=== PATIENT | female | born 1955 | race Caucasian/White ===

== ENCOUNTER → 2019-09-07 10:07 | Outpatient (BNVA) | payer BC, OTHER, SELFPAY | PROVIDERS: Visit Provider Nurse Practitioner Family | DX: Z12.39 Encounter for other screening for malignant neoplasm of breast (principal); R53.83 Other fatigue; R60.9 Edema, unspecified; E55.9 Vitamin D deficiency, unspecified; R60.0 Localized edema | CPT/HCPCS: 85025 ==

== ENCOUNTER → 2019-09-11 08:19 | Outpatient (BNVA) | payer BC, OTHER, SELFPAY | PROVIDERS: Visit Provider Nurse Practitioner Family | DX: E55.9 Vitamin D deficiency, unspecified (principal); R60.0 Localized edema; R53.83 Other fatigue | CPT/HCPCS: 80053; 82306; 83880; 84443 ==

== ENCOUNTER 2019-09-27 13:15 | Outpatient (CLI) | payer BC, OTHER, SELFPAY ==
--- NOTE | 2019-09-27 13:23 | MM_ITS ---
WS: [id number] BILATERAL DIGITAL SCREENING MAMMOGRAPHY WITH CAD CLINICAL INFORMATION: SCREENING HISTORY: Screening mammogram. Right breast lump and soreness COMPARISON: November 25, 2016 TECHNIQUE: Bilateral CC and MLO views. FINDINGS: Scattered fibroglandular densities bilaterally. . Punctate and vascular calcification. Palpable marke rs upper outer right breast posterior depth. No mammographic abnormalities in this area. Recommend [facility] BREAST ULTRASOUND for further evaluation. MM/[place] [id number] IMPRESSION: BI-RADS: 0-Incomplete: Need additional imaging evaluation FOLLOW UP: Need Additional Imaging
== END 2019-09-27 13:16 | disposition home or self-care (01) ==
PROVIDERS: PCP Nurse Practitioner Family; Visit Provider Nurse Practitioner Family
DX: Z12.31 Encounter for screening mammogram for malignant neoplasm of breast (principal); R92.1 Mammographic calcification found on diagnostic imaging of breast
CPT/HCPCS: 77067

== ENCOUNTER 2019-10-02 13:49 | Outpatient (CLI) | payer BC, OTHER, SELFPAY ==
--- NOTE | 2019-10-02 14:15 | US_ITS ---
WS: [id number] THYROID ULTRASOUND HISTORY: thyroid tenderness COMPARISON: None available. Right lobe: 5.2 cm x 1.8 cm x 1.9 cm. Volume: 8.9 cm3. Slightly enlarged thyroid. Ill-defined hypoechoic area with increased vascularity in the posterior gl and. Hypoechoic nodule with increased vascularity measures 1.0 x 0.8 x 1.0 cm. There are additional s maller hypoechoic subcentimeter nodules. Left lobe: 4.2 cm x 1.2 cm x 1.5 cm. Volume: 3.9 cm3. Normal size gland and mild heterogeneity. No discrete nodule. Isthmus: 0.2 cm. US/US thyroid [id number] IMPRESSION: 1. Ill-defined hypervascular hypoechoic nodule in the posterior mid gland RIGH T thyroid. This is not a focal nodule. May be an area of thyroiditis. Due to it s ill defined shape recommend thyroid ultrasound in 6 months. 2. No dominant well-defined nodules.
== END 2019-10-02 13:50 | disposition home or self-care (01) ==
PROVIDERS: PCP Nurse Practitioner Family; Visit Provider Nurse Practitioner Family
DX: E04.9 Nontoxic goiter, unspecified (principal)
CPT/HCPCS: 76536

== ENCOUNTER 2019-10-09 14:32 | Outpatient (CLI) | payer BC, OTHER, SELFPAY ==
--- NOTE | 2019-10-09 15:00 | US_ITS ---
WS: [id number] ULTRASOUND BREAST RIGHT TECHNIQUE: Ultrasound right breast focused area of concern. CLINICAL INFORMATION: Abnormal mammo COMPARISON: Screening mammography September 27, 2019 FINDINGS: Ultrasound right breast area of concern in the right axilla at the 11:00 position. Several normal siz ed lymph nodes are visualized with normal fatty juanjose. Largest lymph node measures 2.0 x 0.5 x 2.1 cm. This may be reactive but is indeterminant and could b e further evaluated with ultrasound guided biopsy. US/US breast RT limited* [id number] IMPRESSION: BI-RADS 4A Consider ultrasound-guided biopsy for the enlarged lymph node measuring 2.0 x 0 .5 x 2.1 cm in the area of palpable concern
== END 2019-10-09 14:33 | disposition home or self-care (01) ==
LOC: RAD 14:36
PROVIDERS: PCP Nurse Practitioner Family; Visit Provider Nurse Practitioner Family
DX: R92.8 Other abnormal and inconclusive findings on diagnostic imaging of breast (principal); N63.0 Unspecified lump in unspecified breast
CPT/HCPCS: 76642

== ENCOUNTER → 2019-10-18 15:29 | Outpatient (BNVA) | payer BC, OTHER, SELFPAY | PROVIDERS: PCP Nurse Practitioner Family; Visit Provider Nurse Practitioner Family | DX: R59.0 Localized enlarged lymph nodes (principal); R35.0 Frequency of micturition; R39.15 Urgency of urination | CPT/HCPCS: 80053; 81003; 87077; 87086; 87186 ==

== ENCOUNTER 2019-12-05 10:58 | Outpatient (CLI) | payer BC, OTHER, SELFPAY ==
--- NOTE | 2019-12-05 11:03 | XRR_ITS ---
PROCEDURE INFORMATION: Exam: XR Right Shoulder Exam date and time: 12/05/2019 11:35 AM Age: 64 years old Clinical indication: Pain; Shoulder; Right; Additional info: Right shoulder pain from scapula into breast x 1 week, no injury TECHNIQUE: Imaging protocol: XR Right shoulder. Views: 2 or more views. COMPARISON: No relevant prior studies available. FINDINGS: Bones/joints: No fracture. Unremarkable glenohumeral joint. Soft tissues: Normal. XR/XR shoulder RT min 2V* [id number] IMPRESSION: No acute findings.
== END 2019-12-05 10:59 | disposition home or self-care (01) ==
LOC: RAD 11:01
PROVIDERS: PCP Nurse Practitioner Family; Visit Provider Nurse Practitioner Family
DX: M25.511 Pain in right shoulder (principal)
CPT/HCPCS: 73030

== ENCOUNTER 2020-01-04 15:45 | Outpatient (CLI) | payer BC, OTHER, SELFPAY ==
--- NOTE | 2020-01-04 16:00 | MRR_ITS ---
PROCEDURE INFORMATION: Exam: MR Right Upper Extremity Joint Without Contrast; Shoulder Exam date and time: 01/04/2020 4:00 PM Age: 64 years old Clinical indication: Pain; Shoulder; Right; Additional info: M25.511 pain in right shoulder TECHNIQUE: Imaging protocol: MR of the Right upper extremity without contrast. Exam focused on the shoulder. COMPARISON: CR XR shoulder RT min 2V* [id number] 12/05/2019 11:30 AM FINDINGS: Bones and cartilage: Unremarkable. There are degenerative hypertrophic changes of the acromioclavicular joint. Joint spaces: Small joint effusion. Glenoid labrum: Unremarkable. No evidence of tear. Supraspinatus tendon: There is a small full-thickness tear in the distal supraspinatus tendon.. Infraspinatus tendon: Unremarkable. No evidence of tear. Subscapularis tendon: Unremarkable. No evidence of tear. Teres minor tendon: Unremarkable. No evidence of tear. Tendon of biceps brachii: Unremarkable. No evidence of tear. Glenohumeral ligaments: Unremarkable. Muscles: Unremarkable. Soft tissues: Unremarkable. MR/MR shoulder RT wo con* [id number] IMPRESSION: There is a full-thickness tear of the distal supraspinatus tendon.
== END 2020-01-04 15:46 | disposition home or self-care (01) ==
PROVIDERS: PCP Nurse Practitioner Family; Visit Provider Nurse Practitioner Family
DX: M75.101 Unspecified rotator cuff tear or rupture of right shoulder, not specified as traumatic (principal); X58.XXXA Exposure to other specified factors, initial encounter
CPT/HCPCS: 73221

== ENCOUNTER → 2020-09-09 08:46 | Outpatient (BNVA) | payer BC, OTHER, SELFPAY | PROVIDERS: PCP Nurse Practitioner Family; Visit Provider Nurse Practitioner Family | DX: E03.9 Hypothyroidism, unspecified (principal); E55.9 Vitamin D deficiency, unspecified; M54.5 Low back pain; M25.551 Pain in right hip | CPT/HCPCS: 82306; 84443 ==

== ENCOUNTER → 2023-06-09 08:46 | Outpatient (BNVA) | payer MEDICARE, OTHER, SELFPAY | PROVIDERS: PCP Nurse Practitioner Family; Visit Provider Nurse Practitioner Family | DX: Z12.11 Encounter for screening for malignant neoplasm of colon (principal); Z74.8 Other problems related to care provider dependency; Z23 Encounter for immunization; E03.9 Hypothyroidism, unspecified; E78.5 Hyperlipidemia, unspecified; I10 Essential (primary) hypertension; R53.83 Other fatigue; E53.8 Deficiency of other specified B group vitamins; E55.9 Vitamin D deficiency, unspecified; R35.0 Frequency of micturition; Z00.00 Encounter for general adult medical examination without abnormal findings; N39.0 Urinary tract infection, site not specified | CPT/HCPCS: 80053; 80061; 81000; 82306; 82607; 84443; 85025; 87077; 87086; 87184 ==

== ENCOUNTER 2023-06-17 12:33 | Outpatient (CLI) | payer MEDICARE, OTHER, SELFPAY ==
--- NOTE | 2023-06-17 13:00 | US_ITS ---
WS: [id number] ULTRASOUND THYROID TECHNIQUE: Ultrasound of the thyroid. CLINICAL INFORMATION: E04.9 - Nontoxic goiter, unspecified COMPARISON: 10/02/2019 FINDINGS: Thyroid: Right and left thyroid lobes are normal in size and echotexture. Isoechoic nodule measuring 5 x 3 mm mid RIGHT thyroid. This is unchanged compared to previous. The previously described ill-defined heterogeneous area in the posterior mid RIGHT thyroid lobe is st able and does not appear to represent a discrete nodule. This is stable in size measuring 9 x 10 mm No left-sided nodules. Right thyroid lobe: 5.1 cm x 1.6 cm x 1.6 cm Left thyroid lobe: 4.4 cm x 1.5 cm x 1.4 cm. Isthmus: 0.3 mm. Cervical lymphadenopathy: None. IMPRESSION: 1. No significant changes since 10/02/2019 2. Stable 5 x 3 mm isoechoic mid RIGHT thyroid nodule 3. Area of heterogeneity in the mid RIGHT thyroid is stable in size measuring 9 x 10 mm. 4. No other suspicious findings.
--- NOTE | 2023-06-17 14:00 | MM_ITS ---
WS: [id number] BILATERAL 3D TOMOSYNTHESIS DIGITAL SCREENING MAMMOGRAPHY WITH CAD CLINICAL INFORMATION: Z12.39 - Encounter for other screening for malignant neop... HISTORY: Screening mammogram. No current complaints. COMPARISON: 2020 TECHNIQUE: Bilateral CC and MLO views. FINDINGS: Scattered fibroglandular densities bilaterally. No suspicious focal mass, asymmetry, calcifications, or architectural distortion. No evidence of malignancy. Vascular calcifications. Incidental calcifica tions. IMPRESSION: MM/[place] [id number] BI-RADS: 2-Benign FOLLOW UP: 1 Year Follow-up Recommend return to annual screening mammography.
--- NOTE | 2023-06-17 14:30 | XR_ITS ---
WS: [id number] SCREENING DEXA SCAN [employer] CLINICAL INFORMATION: M81.0 - Age-related osteoporosis without current patholog... COMPARISON: None. FINDINGS: The L1-L4 bone mineral density measures 1.250 g/cm2. This corresponds to a T score score of 0.6 and Z score of 1.6. Left femoral neck bone mineral density measures 1.046 g/cm2. This corresponds to a T score of 0.3 and Z score of 1.3. Right femoral neck bone mineral density measures 0.996 g/cm2. This corresponds to a T score -0.1of an d Z score of 0.9. Mean femoral neck bone mineral density measures 1.021 g/cm2. This corresponds to a T score of 0.1 and Z score of 1.1. IMPRESSION: Normal bone mineralization lumbar spine and femoral necks.. Patient's FRAX calculated 10 year probability for major osteoporotic fracture is 7.3% and osteoporoti c hip fracture is 0.4%.
== END 2023-06-17 12:34 | disposition home or self-care (01) ==
LOC: RAD 12:33
PROVIDERS: PCP Nurse Practitioner Family; Visit Provider Nurse Practitioner Family
DX: M81.0 Age-related osteoporosis without current pathological fracture; E04.9 Nontoxic goiter, unspecified; Z12.39 Encounter for other screening for malignant neoplasm of breast; R92.30 Dense breasts, unspecified
CPT/HCPCS: 76536; 77063; 77067; 77080

== ENCOUNTER → 2023-06-22 10:03 | Outpatient (BNVA) | payer MEDICARE, OTHER, SELFPAY | PROVIDERS: PCP Nurse Practitioner Family; Visit Provider Surgery | DX: Z12.11 Encounter for screening for malignant neoplasm of colon (principal) | CPT/HCPCS: 99024; 99203 ==

== ENCOUNTER → 2023-07-07 08:49 | Outpatient (BNVA) | payer MEDICARE, OTHER, SELFPAY | PROVIDERS: PCP Nurse Practitioner Family; Visit Provider Nurse Practitioner Family | DX: N39.0 Urinary tract infection, site not specified (principal); T78.40XA Allergy, unspecified, initial encounter; L98.9 Disorder of the skin and subcutaneous tissue, unspecified | CPT/HCPCS: 81000; 86003; 86008; 86618; 86666; 86757 ==

== ENCOUNTER → 2023-08-01 11:59 | Outpatient (BNVA) | payer MEDICARE, OTHER, SELFPAY | PROVIDERS: PCP Nurse Practitioner Family; Visit Provider Nurse Practitioner Family | DX: E07.9 Disorder of thyroid, unspecified (principal); E53.9 Vitamin B deficiency, unspecified; E55.9 Vitamin D deficiency, unspecified; Z91.018 Allergy to other foods | CPT/HCPCS: 82306; 82607; 84443 ==

== ENCOUNTER → 2023-08-10 13:11 | Outpatient (BNVA) | payer MEDICARE, OTHER, SELFPAY | PROVIDERS: PCP Nurse Practitioner Family; Referring Provider Nurse Practitioner Family; Visit Provider Nurse Practitioner Family | DX: L82.0 Inflamed seborrheic keratosis (principal); L57.0 Actinic keratosis; L82.1 Other seborrheic keratosis; D22.62 Melanocytic nevi of left upper limb, including shoulder; L57.8 Other skin changes due to chronic exposure to nonionizing radiation; L81.4 Other melanin hyperpigmentation | CPT/HCPCS: 17000; 17110; 99203 ==

== ENCOUNTER → 2023-10-03 10:52 | Outpatient (BNVA) | payer MEDICARE, OTHER, SELFPAY | PROVIDERS: PCP Nurse Practitioner Family; Referring Provider Nurse Practitioner Family; Visit Provider Psychiatry & Neurology Neurology | DX: R20.2 Paresthesia of skin (principal); G62.9 Polyneuropathy, unspecified; E53.8 Deficiency of other specified B group vitamins; E53.9 Vitamin B deficiency, unspecified; G37.9 Demyelinating disease of central nervous system, unspecified; R29.90 Unspecified symptoms and signs involving the nervous system; E55.9 Vitamin D deficiency, unspecified; R03.0 Elevated blood-pressure reading, without diagnosis of hypertension; W57.XXXA Bitten or stung by nonvenomous insect and other nonvenomous arthropods, initial encounter | CPT/HCPCS: 36415; 82607; 82746; 83735; 83921; 84207; 84425; 84591; 86592; 99203 ==

== ENCOUNTER → 2023-10-18 13:50 | Outpatient (BNVA) | payer MEDICARE, OTHER, SELFPAY | PROVIDERS: PCP Nurse Practitioner Family; Visit Provider Psychiatry & Neurology Neurology | DX: R20.2 Paresthesia of skin (principal); G62.9 Polyneuropathy, unspecified; G56.03 Carpal tunnel syndrome, bilateral upper limbs; E53.8 Deficiency of other specified B group vitamins | CPT/HCPCS: 83090; 95885; 95910 ==

== ENCOUNTER 2023-12-01 10:44 | Outpatient (CLI) | payer MEDICARE, OTHER, SELFPAY ==
--- NOTE | 2023-12-01 11:00 | MR_ITS ---
WS: [id number] MRI HEAD WITH CONTRAST TECHNIQUE: Sagittal T1, T2 axial, T2 axial FLAIR, axial susceptibility weighted imaging, axial diffus ion weighted images, and coronal T2 images were obtained. Pre and post-T1 axial and post T1 coronal i mages. ADC and FSPGR images. CLINICAL INFORMATION: R20.2 - Paresthesia of skin COMPARISON: MRI 2015 FINDINGS: No evidence of restricted diffusion to suggest acute ischemia. Ventricular system and basal cisterns are patent. Normal posterior fossa. Normal vascular flow voids at the skull base. No extra-axial flui d collections. No loss of mass or mass effect. Mild mucosal thickening in the paranasal sinuses. Mast oid air cells are well aerated. Mild small vessel changes. Mild parenchymal volume loss. No hemosiderin on the susceptibility weighte d imaging. Normal optic chiasm and pituitary infundibulum. Temporal lobes and hippocampal formations are normal in appearance. No abnormal gadolinium enhancement. Normal dural venous sinuses. Incidental partially empty sella. MR/MR head wo/w con [id number] IMPRESSION: 1. No evidence of restricted diffusion to suggest acute ischemia. 2. Mild small vessel changes slightly progressed compared to 2015. Mild parenc hymal volume loss. 3. No hemosiderin on the susceptibly weighted imaging. 4. Normal corpus callosum. 5. No other acute findings.
--- NOTE | 2023-12-01 11:45 | MR_ITS ---
WS: [id number] MR CERVICAL SPINE WO/W HISTORY: R20.2 - Paresthesia of skin TECHNIQUE: Sagittal T1, T2 and T2 inversion recovery; axial T2, T2 gradient and fiesta. Post gadolini um imaging with fat saturation technique. FINDINGS: Straightening of the normal cervical lordosis. No high grade central canal narrowing. Cord signal is normal. No demyelinating lesions within the cervical cord. No cord atrophy. No enhancing lesions. C2-3: Mild facet arthropathy. Spinal canal and foramen are patent. C3-4: Mild facet arthropathy. Spinal canal and foramen are patent. C4-5: Mild disc osteophyte complex with endplate ridging. Spinal canal and foramen are patent. Mild f acet arthropathy. C5-6: Mild disc osteophyte ridging. Moderate facet arthropathy. Spinal canal and foramen are patent. C6-7: Disc osteophyte complex with endplate ridging. Mild RIGHT bony foraminal narrowing. Moderate fa cet arthropathy. Spinal canal is patent. C7-T1: Mild disc osteophyte complex. Mild LEFT bony foraminal narrowing. Spinal canal and RIGHT veronica en are patent. MR/MR cervical spine wo/w [id number] IMPRESSION: 1. Cord signal is normal. No demyelinating lesions within the cervical cord. 2. No abnormal gadolinium enhancement. 3. Mild spondylitic changes described above..
== END 2023-12-01 10:45 | disposition home or self-care (01) ==
PROVIDERS: PCP Nurse Practitioner Family; Visit Provider Psychiatry & Neurology Neurology
DX: M47.892 Other spondylosis, cervical region (principal); M25.78 Osteophyte, vertebrae; R20.2 Paresthesia of skin
CPT/HCPCS: 70553; 72156; A9577

== ENCOUNTER 2023-12-05 10:33 | Outpatient (CLI) | payer MEDICARE, OTHER, SELFPAY ==
--- NOTE | 2023-12-05 11:00 | MR_ITS ---
WS: [id number] MRI LUMBAR SPINE WITH AND WITHOUT CONTRAST HISTORY: R20.2 - Paresthesia of skin COMPARISON: 06/02/2015 TECHNIQUE: Sagittal and axial multisequence imaging is submitted. Postcontrast imaging MultiHance 18 mL. Marked increase in thoracic kyphosis. L3 anterolisthesis by 2.7 mm. L4 anterolisthesis by 3.6 mm. No fracture. No marrow edema. Disc spaces are only mildly desiccated. Disc spaces and vertebral body heights are well-preserved. Conus terminates normally at L1. L1-L2: Bilateral mild facet arthritis. L2-L3: Mild disc bulging with bilateral facet joint arthritis. Very slight encroachment upon the suba rticular recesses. L3-L4: Mild annular disc bulging with ligamentum flavum and facet arthritis. Thecal sac is being defo rmed by the facet joint arthritis. Mild central with bilateral subarticular recess and foraminal sten osis. L4-L5: Mild annular disc bulging with moderate ligamentum flavum and facet arthritis. Moderate subart icular recess encroachment. L5-S1: Bilateral facet joint arthritis. Postcontrast imaging negative for discitis or osteomyelitis. No enhancing masses. 2.7 cm RIGHT renal cyst. MR/MR lumbar spine wo/w con [id number] IMPRESSION: 1. Grade 1 anterolisthesis of L3 and L4 with mild progression since 2015. 2. L4-5: Moderate subarticular recess encroachment upon the traversing L5 nerv e roots. 3. L3-4: Mild central with bilateral subarticular recess and foraminal stenosi s. 4. L2-3: Mild subarticular recess encroachment. 5. No discitis or osteomyelitis.
[2023-12-05] MEDS: gadobenate dimeglumine 20 mL vial 18 ML IV (11:18)
== END 2023-12-05 10:34 | disposition home or self-care (01) ==
LOC: RAD 10:34
PROVIDERS: PCP Nurse Practitioner Family; Visit Provider Psychiatry & Neurology Neurology
DX: M43.16 Spondylolisthesis, lumbar region (principal); M99.63 Osseous and subluxation stenosis of intervertebral foramina of lumbar region; R20.2 Paresthesia of skin
CPT/HCPCS: 72158

== ENCOUNTER → 2024-01-04 12:31 | Outpatient (BNVA) | payer MEDICARE, OTHER, SELFPAY | PROVIDERS: PCP Nurse Practitioner Family; Visit Provider Psychiatry & Neurology Neurology | DX: G62.9 Polyneuropathy, unspecified (principal); E53.8 Deficiency of other specified B group vitamins; E53.9 Vitamin B deficiency, unspecified; G37.9 Demyelinating disease of central nervous system, unspecified; R29.90 Unspecified symptoms and signs involving the nervous system; E55.9 Vitamin D deficiency, unspecified; R03.0 Elevated blood-pressure reading, without diagnosis of hypertension; W57.XXXA Bitten or stung by nonvenomous insect and other nonvenomous arthropods, initial encounter; M62.541 Muscle wasting and atrophy, not elsewhere classified, right hand; M62.542 Muscle wasting and atrophy, not elsewhere classified, left hand; R20.2 Paresthesia of skin; X58.XXXA Exposure to other specified factors, initial encounter; M43.16 Spondylolisthesis, lumbar region; G56.03 Carpal tunnel syndrome, bilateral upper limbs | CPT/HCPCS: 99212; 99213 ==

== ENCOUNTER → 2024-01-18 10:36 | Outpatient (BNVA) | payer MEDICARE, OTHER, SELFPAY | PROVIDERS: PCP Nurse Practitioner Family; Visit Provider Nurse Practitioner | DX: M79.642 Pain in left hand (principal); G56.13 Other lesions of median nerve, bilateral upper limbs; M79.641 Pain in right hand; R03.0 Elevated blood-pressure reading, without diagnosis of hypertension | CPT/HCPCS: 73130; 99204; L3908 ==

== ENCOUNTER 2024-01-18 17:29 | Outpatient (CLI) | payer MEDICARE, OTHER, SELFPAY | END 2024-01-18 17:30 | disposition home or self-care (01) | LOC: SPT 17:29 | PROVIDERS: PCP Nurse Practitioner Family; Visit Provider Nurse Practitioner | DX: Z46.89 Encounter for fitting and adjustment of other specified devices (principal); M62.541 Muscle wasting and atrophy, not elsewhere classified, right hand; M79.642 Pain in left hand | CPT/HCPCS: L3908 ==

== ENCOUNTER → 2024-03-01 11:00 | Outpatient (BNVA) | payer MEDICARE, OTHER, SELFPAY | PROVIDERS: PCP Nurse Practitioner Family; Visit Provider Nurse Practitioner | DX: G56.01 Carpal tunnel syndrome, right upper limb (principal); Z79.899 Other long term (current) drug therapy | CPT/HCPCS: 36415; 80053; 81001; 85025 ==

== ENCOUNTER 2024-03-27 05:39 | Day surgery (SDC) | payer MEDICARE, OTHER, SELFPAY ==
[2024-03-27] VITALS (11 sets, daily range): BP systolic 105–137; BP diastolic 58–72; PULSE 48–73; RESP 16–20; TEMP 36.2–36.9; O2SAT 94–99; BMI 29.0
[2024-03-27] MEDS: sodium chloride 0.9% 1,000 ML 30 ML IV (06:35)
[2024-03-27] MEDS: acetaminophen 1,000 MG/100 ML PIGGYBACK 400 MG IV (06:36)
--- NOTE | 2024-03-27 06:53 | ANES.PREANE2 ---
Pre-Anesthetic Assessment Height/Weight: Height 1.7 m Weight 83.915 kg Temp Pulse Resp BP Pulse Ox O2 Del Method 98.5 F 73 17 137/72 97 Room Air 03/27/24 06:13 03/27/24 06:13 03/27/24 06:13 03/27/24 06:13 03/27/24 06:13 03/27/24 06:13 Operation Date: 03/27/24 07:00 Proposed Procedures p Carpal Tunnel Release(Right) - Noni Brown MD Familial anesthetic complications: None Was Beta Yung taken within 24 hours: N/A Was Clonidine taken within 24 hours: N/A Last intake: Intake Last Liquid Date 03/26/24 Last Liquid Time 23:30 Last Solid Date 03/26/24 Last Solid Time 18:00 Social No alcohol and No tobacco Exam alert, oriented x 3, clear to auscultation bilaterally and regular rate & rhythm Airway Mallampati: Class II Dentition: other (has gum condition where her teeth may fall out) CV/HEM Hypertension Metabolic Thyroid Disease Anesthetic Plan ASA status: 2 Anesthesia: General Risk of > 500 ml blood loss (7ml/kg in children): No Other Pertinent Information Alpha Gal Medications/Allergies Home Medications Medication Instructions Recorded Confirmed Last Taken Type cholecalciferol (vitamin D3) 1,250 50,000 unit PO .weekly #90 caps 06/15/23 03/26/24 03/24/24 Rx mcg (50,000 unit) capsule vitamin B complex (B 1 tab PO DAILY #90 tabs 06/15/23 03/27/24 03/26/24 Rx Complex-Vitamin B12 tablet) epinephrine 0.3 mg/0.3 mL 0.3 mg (0.3 mL) IM Q4H PRN 08/01/23 03/26/24 Unknown Rx injection, auto-injector (EpiPen anaphylaxis #2 ea 2-Shreyas) Bilateral cock-up slpints #1 ea 01/18/24 03/26/24 Unknown Rx diclofenac sodium 1 % topical gel 2 g topical QID #100 grams 01/18/24 03/26/24 03/25/24 Rx lisinopril 5 mg tablet 5 mg PO DAILY #30 tabs 03/14/24 03/26/24 03/26/24 Rx levothyroxine 25 mcg tablet 25 mcg PO DAILY 03/27/24 03/27/24 03/26/24 History Allergies Allergy/AdvReac Type Severity Reaction Status Date / Time nitrofurantoin Allergy Intermediate ALGY-Rash Verified 03/26/24 08:58 [From Macrobid] Penicillins Allergy Mild Unknown Verified 03/27/24 06:08 Alpha-Gal Allergy ADR-Gastrointestinal Verified 03/27/24 06:08 (Zkqemlkru-Ygguo-0,3-Gala Upset Iodinated Contrast Media Allergy Unknown Verified 03/26/24 08:58 Current Medications Generic Name Dose Route Start Last Admin Trade Name Freq PRN Reason Stop Dose Admin Sodium Chloride 1,000 mls @ 30 mls/hr 03/27/24 06:15 03/27/24 06:35 Sodium Chloride 0.9% IV 03/28/24 06:14 30 mls/hr .Q24H JUAN M Administration PFSH Anesthesia Medical History Tear of right supraspinatus tendon Mass of right axilla Hypothyroidism Neuropathy Spinal stenosis Surgical History History of hemorrhoidectomy Family History Father Cancer kidney Social History Smoking and tobacco/nicotine status: never used tobacco/nicotine Data Anesthesia Cardiac Studies: No Data to Display
--- NOTE | 2024-03-27 06:56 | W.PM.OPSUD ---
Surgery/Procedure H&P Update DATE OF PROCEDURE: March 27, 2024 DATE H&P PERFORMED: 03/01/24 H&P UPDATE INFORMATION: I have reviewed H&P completed within last 30 days, I have examined patient prior to procedure, No changes to prior documentation and H&P is in [facility] [place] on date indicated PLANNED PROCEDURE: Operation Date: 03/27/24 07:00 Proposed Procedures p Carpal Tunnel Release(Right) - Noni Brown MD Related Problem List Diagnoses (1) Carpal tunnel syndrome on right:
[2024-03-27] MEDS: ceFAZolin 2,000 mg SDV 2000 MG IVP (07:06)
[2024-03-27] MEDS: BUPivacaine 0.5% INJ 30 mL INJECTION (07:25)
--- NOTE | 2024-03-27 08:10 | P.OP_ITS ---
Operative Report Date of procedure: March 27, 2024 Pre-op diagnosis: Right carpal tunnel syndrome Post-op diagnosis: Right carpal tunnel syndrome Post-op findings: Significant compression across the carpal canal Procedure done: Right carpal tunnel release Implants: None Specimens removed/disposition: None Pathology: None Surgeon: Noni Brown MD Cycling Instructor: None Anesthesia: General (Per LMA, ASA 3) Estimated blood loss (mL): 2 Tourniquet time (min): 11 (At 250 mmHg) IV fluids (mL): 500 Urine output (mL): 0 (No Hdz) Complications: None Findings: Significant compression across the carpal canal with hourglass deformity to the median nerve Condition: stable Disposition: PACU (Then return to same-day surgery for discharge to home) Brief History: This 68-year-old woman presents today with diagnoses of bilateral carpal tunnel syndrome. She was unresponsive to conservative treatment such as anti- inflammatories, stretches, and bracing. Nerve conduction study demonstrated bilateral median nerve entrapment at the wrist right greater than left with associated atrophy and decrease in strength. After discussion, patient wished to proceed with operative intervention. Risks and complications were discussed with her. Consents were signed preoperatively, and questions were answered. Patient was seen in the preoperative holding area and once again given o pportunity to ask questions. Procedure: The patient was brought to the operating theater. The patient had a general anesthesia per LMA, ASA 3. The tourniquet was elevated to 11 mmHg for a total tourniquet time of 250 minutes. The patient was also given Ancef 2 g preoperatively. The arm was then prepped and draped with DuraPrep in usual fashion with the arm draped free. A surgical pause was performed. At the time, the surgical pause, we confirmed the site and side of surgery. We also confirmed the patient's identity, appropriate and timely administration of preoperative antibiotics and preoperative surgical markings. An incision was then made along the thenar crease. The incision crossed the wrist joint in a curvilinear fashion. Dissection continued through skin and soft tissues using a scalpel. The palmaris longus was identified along with the transverse carpal ligament. Each of these was released carefully to avoid injury to the median nerve. We were able to dissect gently into the carpal canal which was noted to be quite tight with significant compression across the median nerve. The nerve was visualized and was an hourglass shape. The canal was subsequently palpated to assure there was no bony encroachment upon the canal. There was a quite thickened fibrous tissue within the canal, and this was opened longitudinally as well. The canal was then palpated distally and proximally to assure that my small finger was passed easily without impingement. Finding this to be so, attention was directed to closure. The wound was irrigated with ropivacaine plain. It was then closed with 3-0 nylon in an interrupted mattress fashion. Sterile dressing was then placed consisting of Dermabond, OpSite, fluffed fluffs, sterile soft roll, and an Nikita wrap. The tourniquet was released after 11 minutes. There were no complications. There were no specimens. The procedure was well tolerated. Plan is the patient will be discharged home. Related Problem List Diagnoses (1) Carpal tunnel syndrome on right:
--- NOTE | 2024-03-27 09:00 | ANE.PACU2 ---
Inpatient post-anesthesia follow up: Airway intact: Yes Vital signs: Temperature 97.3 F Pulse Rate 60 Respiratory Rate 18 Blood Pressure 119/71 Pulse Oximetry 97 Oxygen Delivery Me thod Room Air Oxygen Flow Rate Fraction of Inspir ed Oxygen Hydration adequate: Yes Nausea and vomiting: No Pain level: 1 Mental status: Baseline
== END 2024-03-27 09:05 | disposition home or self-care (01) ==
PROVIDERS: PCP Nurse Practitioner Family; Visit Provider Specialist
PROC: (CPT 64721; principal; 2024-03-27 07:00)
DX: G56.01 Carpal tunnel syndrome, right upper limb (principal); I10 Essential (primary) hypertension; E03.9 Hypothyroidism, unspecified
CPT/HCPCS: 64721; J0131; J0690; J1100; J2405; J2704; J3010; J3490; J7030

== ENCOUNTER → 2024-04-09 09:39 | Outpatient (BNVA) | payer MEDICARE, OTHER, SELFPAY | PROVIDERS: PCP Nurse Practitioner Family; Visit Provider Nurse Practitioner | DX: Z98.890 Other specified postprocedural states (principal); M62.541 Muscle wasting and atrophy, not elsewhere classified, right hand; G56.01 Carpal tunnel syndrome, right upper limb | CPT/HCPCS: 99024 ==

== ENCOUNTER 2024-04-25 10:19 | Outpatient (CLI) | payer MEDICARE, OTHER, SELFPAY | END 2024-04-25 10:20 | disposition home or self-care (01) | LOC: RAD 10:22 | PROVIDERS: PCP Nurse Practitioner Family; Visit Provider Nurse Practitioner Family | DX: M17.11 Unilateral primary osteoarthritis, right knee (principal); M25.761 Osteophyte, right knee; M77.8 Other enthesopathies, not elsewhere classified | CPT/HCPCS: 73562 ==

== ENCOUNTER → 2024-06-25 09:41 | Outpatient (BNVA) | payer MEDICARE, OTHER, SELFPAY | PROVIDERS: PCP Nurse Practitioner Family; Visit Provider Nurse Practitioner | DX: Z98.890 Other specified postprocedural states (principal); M62.541 Muscle wasting and atrophy, not elsewhere classified, right hand | CPT/HCPCS: 99213 ==

== ENCOUNTER → 2024-07-23 10:19 | Outpatient (BNVA) | payer MEDICARE, OTHER, SELFPAY | PROVIDERS: PCP Nurse Practitioner Family; Visit Provider Nurse Practitioner | DX: M17.11 Unilateral primary osteoarthritis, right knee (principal); M21.161 Varus deformity, not elsewhere classified, right knee; G89.29 Other chronic pain | CPT/HCPCS: 20610; 73560; 73565; 99214; J1100; J2795; J3301; J9999 ==

== ENCOUNTER → 2024-08-06 15:35 | Outpatient (BNVA) | payer MEDICARE, OTHER, SELFPAY | PROVIDERS: PCP Nurse Practitioner Family; Visit Provider Nurse Practitioner Family | DX: D22.62 Melanocytic nevi of left upper limb, including shoulder (principal); L57.8 Other skin changes due to chronic exposure to nonionizing radiation; X32.XXXA Exposure to sunlight, initial encounter; L81.4 Other melanin hyperpigmentation; L82.1 Other seborrheic keratosis; L82.0 Inflamed seborrheic keratosis; L29.89 Other pruritus; R20.9 Unspecified disturbances of skin sensation; R20.8 Other disturbances of skin sensation; L53.8 Other specified erythematous conditions | CPT/HCPCS: 17110; 99213 ==

== ENCOUNTER → 2024-09-17 10:08 | Outpatient (BNVA) | payer MEDICARE, OTHER, SELFPAY | PROVIDERS: PCP Nurse Practitioner Family; Visit Provider Nurse Practitioner | DX: M17.11 Unilateral primary osteoarthritis, right knee (principal); M21.161 Varus deformity, not elsewhere classified, right knee | CPT/HCPCS: 20610; 99213; J1100; J2795; J3301; J9999 ==

== ENCOUNTER → 2024-10-16 14:00 | Outpatient (BNVA) | payer MEDICARE, OTHER, SELFPAY | PROVIDERS: PCP Nurse Practitioner Family; Visit Provider Nurse Practitioner Family | DX: I10 Essential (primary) hypertension (principal); R53.83 Other fatigue; Z98.890 Other specified postprocedural states | CPT/HCPCS: 80053; 82607; 83550; 84443; 85025 ==

== ENCOUNTER 2025-02-01 08:53 | Outpatient (CLI) | payer MEDICARE, OTHER, SELFPAY ==
[2025-02-01 09:19] VITALS: BMI 27.4
--- NOTE | 2025-02-01 09:22 | NMCV_ITS ---
NM heydi perf SPECT r/s* [id number] Mary Singh Age: 69 Gender: F : 1955 Exam Date: 02/01/2025 10:14 Ordering Phys: Caron MehtaP Technologist: STEVEN Gaviria Exam Location: [facility] Indications: cp STRESS TEST Please see separate stress test report in [facility] for full findings IMAGE PROTOCOL Rest/Stress 1 Dobutamine Day Radiopharmaceutical Dose (mCi) Administration Site Administered by Rest: Tc-99m 10.6 IV STEVEN Gaviria Sestamibi Stress:Tc-99m 32.5 IV Muna Hernández, ART MANAGER Sestamibi Rest: 01-Feb-2025 60 Discovery 630 Stress: 01-Feb-2025 30 Discovery 630 Radiopharmaceutical was injected at 88 % maximum heart rate. Supine position only as patient was unable to lay prone. SPECT RESULTS Technical Quality: Good Raw Data Analysis: Normal Image Corrections: No attenuation or motion correction applied Summed Stress Score: 5 Summed Rest Score: 2 Summed Difference Score: 3 PERFUSION FINDINGS Myocardial perfusion imaging revealing small to moderate area of moderately decreased tracer uptake involving the mid and apical inferior and apical segments .Reversibility was noted in the mid inferior and LV apex FUNCTIONAL RESULTS (calculated via Gated SPECT) Stress Image LV EF (%): 70 Stress EDV (mL):82 TID: 0.89 Stress ESV (mL):25 FUNCTIONAL FINDINGS: Segmental wall motion analysis revealing no gross wall motion abnormalities IMPRESSIONS 1. Myocardial perfusion imaging revealing small to moderate area of moderately decreased tracer uptake involving the inferior wall and LV apex with some reversibility, suggesting myocardial scarring with ischemia in the distribution of the right coronary artery 2. Normal LV ejection fraction of 30%. 3. LV wall motion analysis revealing no gross wall motion abnormalities. 4. Normal LV volume No similar previous studies are available for comparison Dr Pop Sherman MD FAC (Electronically Signed) Final Date: 01 February 2025 13:24 S
--- NOTE | 2025-02-01 09:22 | ECG_ITS ---
[facility] 2025-[facility]01 Pat Name: Mary Singh Department: Room: Gender: Female Hospital Admitting Clerk: : 1955 Requested By: Caron Mehta Order Number: [id number] Mei MD: Pop Sherman M.D. Interpretive Statements Lung unchanged pre/post procedure; Intraprocedure shortess of breath; Symptoms resoled by discharge PROCEDURE: At the baseline, the blood pressure was 133/61 with a heart rate of 75. The electrocardiogram showed sinus rhythm with a normal ST Ts.. The dobutamine was infused over a period of 8 minutes and 19 seconds. The maximum heart rate obtained was 135 (90% of the maximum predicted heart rate). The blood pressure at that time was 117/43 mmHg. The patient did not have any chest pain or any significant electrocardiogram changes with the dobutamine infusion.This sestamibi was injected at the peak heart rate The physical examination remained unchanged. No arrhythmias were seen on the monitor. During the recovery phase, the patient did not have any specific symptoms. The blood pressure at the end of the recovery phase was 97 with a heart rate of 113/61 per minute. CONCLUSION: 1. Normal EKG response to dobutamine infusion 2. No dobutamine used chest pain or cardiac arrhythmia 3. Hypotensive response to dobutamine infusion 4. Sestamibi/Sestamibi perfusion scan pending; see separate report. Electronically Signed On 02-01-2025 20:01:42 [employer] OPERATOR by Pop Sherman M.D. [email or web address]
[2025-02-01] MEDS: DOBUTtamine 200 MG in sodium chloride 0.9% 34 ML 12 MG IV (11:19)
[2025-02-01 11:45] VITALS: BP 113/61; PULSE 99
== END 2025-02-01 08:54 | disposition home or self-care (01) ==
LOC: CDL 08:55
PROVIDERS: PCP Nurse Practitioner Family; Visit Provider Nurse Practitioner Family
DX: R07.9 Chest pain, unspecified (principal); R93.1 Abnormal findings on diagnostic imaging of heart and coronary circulation
CPT/HCPCS: 36415; 78452; 93017; A9500; J1250; J7050

== ENCOUNTER → 2025-02-26 14:39 | Outpatient (BNVA) | payer MEDICARE, OTHER, SELFPAY | PROVIDERS: PCP Nurse Practitioner Family; Referring Provider Nurse Practitioner Family; Visit Provider Internal Medicine Cardiovascular Disease | DX: R94.39 Abnormal result of other cardiovascular function study (principal); R07.9 Chest pain, unspecified; I10 Essential (primary) hypertension; Z91.014 Allergy to mammalian meats; E78.5 Hyperlipidemia, unspecified; R06.09 Other forms of dyspnea | CPT/HCPCS: 99204 ==

== ENCOUNTER → 2025-02-27 08:16 | Outpatient (BNVA) | payer MEDICARE, OTHER, SELFPAY | PROVIDERS: PCP Nurse Practitioner Family; Visit Provider Internal Medicine Cardiovascular Disease | DX: E78.5 Hyperlipidemia, unspecified (principal) | CPT/HCPCS: 80061; 80076 ==

== ENCOUNTER 2025-03-20 08:54 | Outpatient (CLI) | payer MEDICARE, OTHER, SELFPAY ==
--- NOTE | 2025-03-20 09:15 | USCV_ITS ---
Mary Singh Age: 69 Gender: F : 1955 Exam Date: 03/20/2025 09:14 Ordering Phys: Pop Sherman MD ([email or web address]) Technologist: Exam Location: [facility] [place] Indication: cp sob BP: 134 / 74 HR: 58 Rhythm: Sinus Technical Quality: Adequate MEASUREMENTS (Male / Female) Normal Values 2D ECHO LV Diastolic Diameter PLAX 4.2 cm 4.2 - 5.9 / 3.9 - 5.3 cm IVS Diastolic Thickness 1.1 cm 0.6 - 1.0 / 0.6 - 0.9 cm IVS Systolic Thickness 1.7 cm LVPW Diastolic Thickness 1.3 cm 0.6 - 1.0 / 0.6 - 0.9 cm LVPW Systolic Thickness 1.7 cm LVOT Diameter 2.2 cm LV Ejection Fraction 2D Teich 62.1 % LV Ejection Fraction MOD 4C 66.4 % LV Ejection Fraction MOD 2C 53.4 % LV Ejection Fraction 2C AL 54.2 % LA Diameter 3.6 cm RA Systolic Volume 4C AL 46.6 ml RA Systolic Volume 4C MOD 45.4 ml IVC Diameter 2.4 cm M-MODE LA Ao Ratio MM 1.6 AV Cusp Separation MM 2.3 cm DOPPLER AV Peak Velocity 142.0 cm/s LVOT Peak Velocity 88.0 cm/s AV Area Cont Eq vti 2.6 cm squared AV Area Cont Eq pk 2.4 cm squared MV Peak Velocity 99.0 cm/s MV Area PHT 2.8 cm squared Mitral E to A Ratio 1.1 TV Peak Velocity 230.0 cm/s TR Peak Velocity 230.0 cm/s TR Peak Gradient 21.2 mmHg PV Peak Velocity 119.0 cm/s FINDINGS Left Ventricle Normal left ventricular size and systolic function, EF 66%.mild left ventricular hypertrophy.no regional wall motion abnormalities. . Grade II/IV diastolic dysfunction, moderately elevated filling pressures. Right Ventricle Normal right ventricular size and systolic function. Right Atrium Normal right atrial size. Left Atrium Normal left atrial size. IA Septum Normal appearance of the interatrial septum. Mitral Valve Thickened mitral valve. Aortic Valve Minimally thickened Tricuspid Valve Trace tricuspid valve regurgitation. Estimated pulmonary artery peak systolic pressure 24 mmHg Pulmonic Valve Pulmonic valve not well visualized. Pericardium No pericardial effusion. Aorta Normal aortic annulus size. IVC Inferior vena cava not visualized. CONCLUSIONS Normal left ventricular size and systolic function, EF 66%.mild left ventricular hypertrophy.no regional wall motion abnormalities.type II diastolic dysfunction. Thickened mitral and aortic valves. Trace tricuspid valve regurgitation. Estimated pulmonary artery peak systolic pressure 24 mmHg. There is no pericardial effusion. There are no intracardiac masses. Compared to the study from 01/02/2015, there may not be a significant change Dr Pop Sherman MD FAC (Electronically Signed) Final Date: 25 March 2025 19:48 S
== END 2025-03-20 08:55 | disposition home or self-care (01) ==
PROVIDERS: PCP Nurse Practitioner Family; Visit Provider Internal Medicine Cardiovascular Disease
DX: R06.09 Other forms of dyspnea (principal); I51.7 Cardiomegaly; I51.89 Other ill-defined heart diseases; I34.89 Other nonrheumatic mitral valve disorders; I35.8 Other nonrheumatic aortic valve disorders
CPT/HCPCS: 93306